=== PATIENT | female | born 1965 | race Caucasian/White ===

== ENCOUNTER 2016-09-10 02:01 | Emergency (ER) | payer MEDICAID, MEDICARE ==
[2016-09-10 02:27] VITALS: O2SAT 98
[2016-09-10] MEDS ORDERED: Sodium Chloride 0.9% 1,000 ML IV ONE (02:37)
[2016-09-10 02:50] LABS: BASO # 0.1 K/uL (0.0-0.2); BASO % 0.4 % (0.0-2.0); EOS # 0.1 K/uL (0.0-0.7); EOS % 0.7 % (0.0-4.0); HEMATOCRIT 39.5 % (34.0-47.0); LYMPH # 1.9 K/uL (1.0-4.3); LYMPH % 14.7 % (20.0-40.0); MEAN CELL VOLUME 86.4 fL (81.0-99.0); MEAN CORPUSCULAR HEMOGLOBIN 27.6 pg (27.0-31.0); MEAN CORPUSCULAR HGB CONC 31.9 g/dL (33.0-37.0); MONO # 0.7 K/uL (0.0-0.8); MONO % 5.7 % (0.0-10.0); RED CELL DISTRIBUTION WIDTH 14.6 % (11.5-14.5); WHITE BLOOD COUNT 12.8 K/uL (4.8-10.8)
[2016-09-10 02:56] LABS: CHLORIDE 99 mmol/L (98-107)
[2016-09-10 02:57] LABS: RBC URINE 14 /hpf (0-3); SODIUM 137 mmol/L (132-148); URINE BACTERIA RARE (<OCC); URINE BILIRUBIN NEGATIVE (NEGATIVE); URINE BLOOD 1+ (NEGATIVE); URINE COLOR Yellow (YELLOW); URINE GLUCOSE (UA) NORMAL (Normal); URINE KETONE NEGATIVE (NEGATIVE); URINE LEUKOCYTE ESTERASE 3+ Leu/uL (Negative); URINE PROTEIN 1+ mg/dL (NEGATIVE); URINE UROBILINOGEN NORMAL mg/dL (0.2-1.0); WBC URINE 443 /hpf (0-5)
[2016-09-10 02:58] LABS: POTASSIUM 5.2 mmol/L (3.6-5.2)
[2016-09-10 02:59] LABS: GFR AFRICAN-AMERICAN > 60
[2016-09-10 03:00] LABS: ALB/GLOB RATIO 1.1 (1.0-2.1); ALKALINE PHOSPHATASE 62 U/L (38-126); ALT/SGPT 20 U/L (9-52); AST/SGOT 37 U/L (14-36); BILIRUBIN,TOTAL 1.3 mg/dL (0.2-1.3); BLOOD UREA NITROGEN 10 mg/dL (7-17); CALCIUM 8.6 mg/dl (8.6-10.4); CARBON DIOXIDE 24 mmol/L (22-30); GLUCOSE,RANDOM 111 mg/dL (65-105); TOTAL PROTEIN 8.3 g/dL (6.3-8.3)
--- NOTE | 2016-09-10 03:05 | C.PDOC ---
History Of Present Illness 51 y/o female presents to ER with c/o of moderate abdominal and flank pain since yesterday now with multiple episodes of vomiting today associated with dysuria, and urinary frequency and subjective fever. Pt states she had some mid chest discomfort when she vomits otherwise no CP, SOB, palpitations. Time Seen by Provider: 09/10/16 02:22 Chief Complaint (Nursing): Chest Pain History Per: Patient History/Exam Limitations: no limitations Current Symptoms Are (Timing): Still Present Severity: Moderate Quality: "Pain" Associated Symptoms: denies: Dyspnea, Diaphoresis, Syncope Recent travel outside of the [place]: No Past Medical History Vital Signs: Last Vital Signs Temp Pulse 87 09/10/16 02:39 Resp 20 09/10/16 02:18 BP 141/96 H 09/10/16 02:18 Pulse Ox 98 09/10/16 03:07 - Medical History PMH: Anxiety, Asthma, Depression, HTN Family History: States: Unknown Family Hx - Social History Hx Tobacco Use: Yes Hx Alcohol Use: No Hx Substance Use: No - Immunization History Hx Tetanus Toxoid Vaccination: No Hx Influenza Vaccination: No Hx Pneumococcal Vaccination: No Review Of Systems Constitutional: Positive for: Fever (subjective) Gastrointestinal: Positive for: Vomiting, Abdominal Pain. Negative for: Diarrhea Genitourinary: Positive for: Dysuria, Frequency. Negative for: Hematuria Physical Exam - Physical Exam Appears: Well, Non-toxic, In Acute Distress (painful distress) Skin: Normal Color Eye(s): bilateral: Normal Inspection, PERRL Neck: Normal Chest: Symmetrical, No Tenderness Cardiovascular: Rhythm Regular, No Murmur Respiratory: Normal Breath Sounds, No Rhonchi, No Wheezing Gastrointestinal/Abdominal: Bowel Sounds, Soft, Tenderness (diffuse ), No Distention, No Guarding, No Rebound Back: CVA Tenderness (b/l) Neurological/Psych: Oriented x3 Gait: Steady ED Course And Treatment - Laboratory Results Result Diagrams: 09/10/16 02:47 09/10/16 02:47 O2 Sat by Pulse Oximetry: 98 Pulse Ox Interpretation: Normal Progress Note: Pt received toradol IV, zofran, pepcid and IVF , reports painimprovement. Labs reviewed and d/w pt. Pt is now tolerating PO and 1st dose of PO abx was given and urine cx sent. Pt is d/c home and understands to return to ER if vomiting, recurring pain, fever or sx worsen. Reevaluation Time: 04:52 Reassessment Condition: Improved Disposition Counseled Patient/Family Regarding: Diagnosis, Need For Followup - Disposition Referrals: Carly Weems MD [Medical Doctor] - Disposition: HOME/ ROUTINE Disposition Time: 04:53 Condition: STABLE Additional Instructions: Increase po fluids Follow up with PMD in 1-2 days Take all meds prescribed RETURN TO ER IF WORSE Prescriptions: Nitrofurantoin Macrocrystals [Macrobid] 1 cap PO BID #14 cap Ibuprofen [Motrin] 600 mg PO Q6H #30 tab Phenazopyridine HCl [Pyridium] 100 mg PO TID #6 tab Ondansetron [Zofran Odt] 4 mg PO TID #7 odt Instructions: Acute Pyelonephritis (ED) Print Language: CAPE VERDEAN - Clinical Impression Clinical Impression: Pyelonephritis
[2016-09-10 05:10] VITALS: BP 119/76; PULSE 84; RESP 16
--- NOTE | 2016-09-20 08:43 | CARD ---
APPROVED REPORT EKG Measurement Heart [id number] <Conclusion> Sinus tachycardia Rightward axis Borderline ECG
== END 2016-09-10 05:10 | disposition home or self-care (01) ==
LOC: C.ER 02:01
DX: N12 Tubulo-interstitial nephritis, not specified as acute or chronic (principal)
CPT/HCPCS: 80053; 81001; 83690; 84703; 85025; 87086; 87181; 96361; 96374; 96375; 99285; J1885; J2405; J7040

== ENCOUNTER 2016-12-13 10:55 | Emergency (ER) | payer MEDICARE ==
[2016-12-13 10:59] VITALS: BMI 28.3
[2016-12-13 11:01] VITALS: RESP 16; TEMP 98.1
--- NOTE | 2016-12-13 11:45 | C.PDOC ---
History Of Present Illness 51 y/o female with asthma, gastritis c/o right side ear pain and right side throat pain x 3 days with dry cough. no fever or chills. no sick contacts, no wheezing, cp or sob. pt taking Tylenol with mild relief. Time Seen by Provider: 12/13/16 11:16 Chief Complaint (Nursing): ENT Problem History Per: Patient History/Exam Limitations: None Onset/Duration Of Symptoms: Days (3) Current Symptoms Are (Timing): Still Present Quality (Ear): Other (full sensation, sharp pain). denies: Discharge Symptoms Have Been: Continuous Severity: Moderate Past Medical History Reviewed: Historical Data, Nursing Documentation, Vital Signs Vital Signs: Last Vital Signs Temp 98.1 F 12/13/16 11:01 Pulse 86 12/13/16 11:01 Resp 16 12/13/16 11:01 BP 118/80 12/13/16 11:01 Pulse Ox 100 12/13/16 11:48 - Medical History PMH: Anxiety, Asthma, Depression, GERD, HTN Family History: States: Unknown Family Hx - Social History Hx Tobacco Use: Yes Hx Alcohol Use: No Hx Substance Use: No - Immunization History Hx Tetanus Toxoid Vaccination: No Hx Influenza Vaccination: No Hx Pneumococcal Vaccination: No Review Of Systems Constitutional: Negative for: Fever, Chills Eyes: Negative for: Pain ENT: Positive for: Ear Pain, Throat Pain. Negative for: Ear Discharge, Nose Discharge, Nose Congestion Cardiovascular: Negative for: Chest Pain, Palpitations Respiratory: Positive for: Cough. Negative for: Shortness of Breath, Sputum, Wheezing Neurological: Negative for: Weakness, Numbness Physical Exam - Physical Exam Appears: Non-toxic, No Acute Distress Skin: Warm, Dry Head: Atraumatic, Normacephalic Eye(s): bilateral: Normal Inspection Ear(s): Left: Normal, Right: Other (tender to tragus, no mastoid tenderness, erythema in canal lateral wall, tm intact and not erythematous) Nose: Normal, No Discharge Oral Mucosa: Moist Tongue: Normal Appearing Lips: Normal Appearing Throat: Erythema (mild, no tonsillar enlargement, no exudate) Neck: Normal ROM Lymphatic: Adenopathy (tender right submandibular node) Chest: Symmetrical, No Tenderness Cardiovascular: Rhythm Regular, No Murmur Respiratory: Normal Breath Sounds, No Rales, No Rhonchi, No Wheezing Neurological/Psych: Oriented x3, Normal Speech, Normal Cognition ED Course And Treatment O2 Sat by Pulse Oximetry: 100 Medical Decision Making Medical Decision Making: ear and throat pain: tx for otitis externa, rapid strep. tylenol, re-eval. Disposition Counseled Patient/Family Regarding: Studies Performed, Diagnosis, Need For Followup, Rx Given, Smoking Cessation - Disposition Referrals: Pro Beyer MD [Staff Provider] - Disposition: HOME/ ROUTINE Disposition Time: 12:20 Condition: STABLE Additional Instructions: [place] Acetaminophen (Tylenol) segn lo prescrito; Use gotas para los odos beckie se prescribbed. Vicky grgaras con agua salada caliente varias veces al da. Consulte a alaniz mdico de atencin primaria o especialista en ORL en unos bailey. Regrese a ER para cualquier problema que empeora. Prescriptions: Acetaminophen 2 tab PO Q6 #50 tablet Neomycin/Polymyxin/Hydrocortis [Cortisporin Otic Susp] 4 drop AD QID #1 bottle Instructions: Otitis Externa (ED), Pharyngitis (ED) Print Language: UZBEK - Clinical Impression Clinical Impression: Otitis externa, Pharyngitis
[2016-12-13 12:34] VITALS: BP 121/78; PULSE 78
[2016-12-13 22:58] VITALS: O2SAT 100
== END 2016-12-13 12:33 | disposition home or self-care (01) ==
LOC: C.ER 10:55
DX: H60.91 Unspecified otitis externa, right ear (principal); J02.9 Acute pharyngitis, unspecified

== ENCOUNTER 2017-04-30 02:56 | Emergency (ER) | payer MEDICARE ==
[2017-04-30 02:57] VITALS: BMI 28.3
[2017-04-30] MEDS ORDERED: Amoxicillin-Clav 875-125 mg Tab PO STA (04:00)
--- NOTE | 2017-04-30 04:07 | C.PDOC ---
History Of Present Illness 52 year old female with no significant PMHx presents to the ED with complaints of upper lip swelling and pain since yesterday. Patient notes taking Benadryl with no relief. Patient denies fever trauma, dental pain or known allergens. Time Seen by Provider: 04/30/17 03:40 Chief Complaint (Nursing): Medical Clearance History Per: Patient History/Exam Limitations: no limitations Onset/Duration Of Symptoms: Days (1 day ) Current Symptoms Are (Timing): Still Present Recent travel outside of the [place]: No Past Medical History Reviewed: Historical Data, Nursing Documentation, Vital Signs Vital Signs: Last Vital Signs Temp 98.5 F 04/30/17 04:42 Pulse 81 04/30/17 04:42 Resp 18 04/30/17 04:42 BP 135/90 04/30/17 04:42 Pulse Ox 98 04/30/17 05:45 - Medical History PMH: Anxiety, Asthma, Depression, GERD, HTN Family History: States: Unknown Family Hx - Social History Hx Tobacco Use: Yes Hx Alcohol Use: No Hx Substance Use: No - Immunization History Hx Tetanus Toxoid Vaccination: No Hx Influenza Vaccination: No Hx Pneumococcal Vaccination: No Review Of Systems Constitutional: Negative for: Fever, Chills Skin: Positive for: Other (upper lip swelling ) Physical Exam - Physical Exam Appears: Non-toxic, No Acute Distress Skin: Warm, Dry, No Rash Head: Atraumatic, Normacephalic, No Tenderness, Other (small tender indurated abscess below the nose and above mid upper lip with no fluctuance. ) Eye(s): bilateral: Normal Inspection, PERRL, EOMI Ear(s): Bilateral: Normal Nose: Normal, No Discharge Oral Mucosa: Moist Tongue: Normal Appearing, No Swelling Lips: Swelling (upper lip swelling ), Other (lower lip normal) Teeth: No Tender To Palpation, Other (no dental masses palpable to area upper gum) Gingiva: Normal Appearing, No Erythema, No Swelling, Other (floor of mouth is normal ) Throat: Normal, No Erythema, No Exudate Neck: Supple Chest: Symmetrical, No Deformity Cardiovascular: Rhythm Regular, No Murmur Respiratory: Normal Breath Sounds, No Rales, No Rhonchi, No Wheezing Neurological/Psych: Oriented x3 ED Course And Treatment O2 Sat by Pulse Oximetry: 98 (RA) Pulse Ox Interpretation: Normal Progress Note: Patient was given Augmentin and Prednisone. Lip swelling most likely due to infected mass at the upper lip, no facial cellulitis, no dental absess. Allergic reacrtion less likely. May continue benadryl but pt understsands to apply warm compress and take PO augmentin, wound check with PMD and return precautions d/w pt who acknowledged understanding Disposition Counseled Patient/Family Regarding: Diagnosis, Need For Followup, Rx Given - Disposition Referrals: [facility] [Outside] Disposition: HOME/ ROUTINE Disposition Time: 04:03 Condition: STABLE Additional Instructions: Take meds as directed Wound check in 2 days with your doctor or in clinic Return to ER if worse Prescriptions: Amoxicillin/Clavulanate [Augmentin 875 MG-125 MG] 1 tab PO BID #14 tab predniSONE [Prednisone] 40 mg PO DAILY #6 tab Instructions: Abscess (ED) Forms: [place] (Danish) Print Language: SERBIAN - Clinical Impression Clinical Impression: Lip abscess - 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 - Scribe Statement The provider has reviewed the documentation as recorded by the Scribloulou Arredondo All medical record entries made by the Dominick were at my direction and personally dictated by me. I have reviewed the chart and agree that the record accurately reflects my personal performance of the history, physical exam, medical decision making, and the department course for this patient. I have also personally directed, reviewed, and agree with the discharge instructions and disposition.
[2017-04-30] MEDS ORDERED: Amoxicillin-Clav 875-125 mg Tab PO ONE (04:13)
[2017-04-30 04:51] VITALS: BP 135/90; PULSE 81; RESP 18; TEMP 98.5
[2017-04-30 05:43] VITALS: O2SAT 98
== END 2017-04-30 04:41 | disposition home or self-care (01) ==
LOC: C.ER 02:56
DX: K13.0 Diseases of lips (principal)

== ENCOUNTER 2018-01-04 22:20 | Emergency (ER) | payer MEDICARE, OTHER ==
[2018-01-04 22:20] VITALS: BMI 28.3
[2018-01-04 22:36] VITALS: BP 141/82; PULSE 88; RESP 20; TEMP 98.2; O2SAT 100
[2018-01-04] MEDS ORDERED: Oxycodone/Acetaminophen 5/325 mg Tab PO STA (22:42)
--- NOTE | 2018-01-04 22:45 | C.PDOC ---
History Of Present Illness 52 year old female presents to the ER with a complaint of right lower dental pain that began tonight. Denies trauma, fever, tooth discharge, or recent dental procedures. Time Seen by Provider: 01/04/18 22:26 Chief Complaint (Nursing): Dental Pain History Per: Patient History/Exam Limitations: no limitations Onset/Duration Of Symptoms: Hrs Current Symptoms Are (Timing): Still Present Recent travel outside of the [place]: No Past Medical History Reviewed: Historical Data, Nursing Documentation, Vital Signs Vital Signs: Last Vital Signs Temp 98.2 F 01/04/18 22:27 Pulse 88 01/04/18 22:27 Resp 20 01/04/18 22:27 BP 141/82 01/04/18 22:27 Pulse Ox 100 01/04/18 22:48 - Medical History PMH: Anxiety, Asthma, Depression, GERD, HTN Family History: States: Unknown Family Hx - Social History Hx Tobacco Use: Yes Hx Alcohol Use: No Hx Substance Use: No - Immunization History Hx Tetanus Toxoid Vaccination: No Hx Influenza Vaccination: No Hx Pneumococcal Vaccination: No Review Of Systems Constitutional: Negative for: Fever ENT: Positive for: Mouth Pain. Negative for: Mouth Swelling, Throat Pain, Other (tooth pain) Physical Exam - Physical Exam Appears: Non-toxic Skin: Normal Color, Warm, Dry Head: Atraumatic, Normacephalic Eye(s): bilateral: Normal Inspection Nose: Normal Oral Mucosa: Moist, No Trismus Tongue: Normal Appearing Lips: Normal Appearing Teeth: Other (Poor dentition) Gingiva: Normal Appearing, No Swelling Throat: Normal, No Erythema Neck: Normal, No Midline Cervical Tenderness, No Paracervical Tenderness, Supple Lymphatic: No Adenopathy Neurological/Psych: Oriented x3, Normal Speech ED Course And Treatment O2 Sat by Pulse Oximetry: 100 Medical Decision Making Medical Decision Making: Percocet and amoxicillin administered. Patient reports improvement of pain, will discharge home with Rx and instructions to follow up with dentist for further evaluation. Disposition - Disposition Referrals: Arjun Mal[facility] [Outside] Disposition: HOME/ ROUTINE Disposition Time: 22:45 Condition: GOOD Additional Instructions: Follow up with the medical doctor within 1-2 days, Return if worsened. 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 - Scribe Statement The provider has reviewed the documentation as recorded by the Scribe Marin Dewitt All medical record entries made by the Scribe were at my direction and personally dictated by me. I have reviewed the chart and agree that the record accurately reflects my personal performance of the history, physical exam, medical decision making, and the department course for this patient. I have also personally directed, reviewed, and agree with the discharge instructions and disposition.
[2018-01-04] MEDS ORDERED: Oxycodone/Acetaminophen 5/325 mg Tab ONE (22:49)
== END 2018-01-04 22:58 | disposition home or self-care (01) ==
LOC: C.ER 22:20
DX: K02.9 Dental caries, unspecified (principal)

== ENCOUNTER 2018-04-18 22:07 | Emergency (ER) | payer MEDICARE, OTHER ==
[2018-04-18 22:07] VITALS: BMI 30.2
[2018-04-18] MEDS ORDERED: Albuterol-Ipratrop 3 mg / 0.5 (3 ml) UD ONE (22:18)
--- NOTE | 2018-04-18 22:23 | C.PDOC ---
History Of Present Illness 53 year old female with PMHx of asthma and gastritis presents to the ED c/o SOB and left side chest wall pain. Patient states pain increases with deep breathing. Patient also states she was coughing at home and c/o epigastric abdominal pain. Patient denies fever, chills, nausea, vomit, diarrhea, palpitations, rash, weakness, numbness. Chief Complaint (Nursing): Chest Pain History Per: Patient History/Exam Limitations: no limitations Onset/Duration Of Symptoms: Days Current Symptoms Are (Timing): Still Present Quality: "Pain" Exacerbating Factors: Deep Breathing Recent travel outside of the [place]: No Additional History Per: Patient Past Medical History Reviewed: Historical Data, Nursing Documentation, Vital Signs - Medical History PMH: Anxiety, Asthma, Depression, Gastritis, GERD Denies: Chronic Kidney Disease Surgical History: Appendectomy, Family History: States: Unknown Family Hx - Social History Hx Tobacco Use: Yes Hx Alcohol Use: No Hx Substance Use: No - Immunization History Hx Tetanus Toxoid Vaccination: No Hx Influenza Vaccination: No Hx Pneumococcal Vaccination: No Review Of Systems Constitutional: Negative for: Fever, Chills Eyes: Negative for: Vision Change ENT: Negative for: Nose Congestion Cardiovascular: Positive for: Chest Pain. Negative for: Palpitations Respiratory: Positive for: Cough, Shortness of Breath. Negative for: Sputum, Wheezing Gastrointestinal: Negative for: Nausea, Vomiting, Abdominal Pain Skin: Negative for: Rash Neurological: Negative for: Weakness, Numbness, Headache Physical Exam - Physical Exam Appears: Non-toxic, In Acute Distress, Other (moderate dyspnic) Skin: Normal Color, Warm, Dry Head: Atraumatic, Normacephalic Eye(s): bilateral: Normal Inspection Oral Mucosa: Moist Neck: Normal ROM, Supple Chest: Symmetrical Cardiovascular: Rhythm Regular Respiratory: No Rales, Rhonchi, Wheezing (bilateral) Gastrointestinal/Abdominal: Soft, Tenderness (epigastric), No Guarding, No Rebound Extremity: Normal ROM, No Tenderness, No Swelling Neurological/Psych: Oriented x3, Normal Speech, Normal Cognition Gait: Steady ED Course And Treatment - Laboratory Results Result Diagrams: 04/18/18 22:37 04/18/18 22:37 ECG: Interpreted By Me, Viewed By Me ECG Rhythm: Sinus Rhythm ECG Interpretation: Normal, No Acute Changes Interpretation Of ECG: NSR, normal tracings. Rate From EC O2 Sat by Pulse Oximetry: 99 (ON RA) Pulse Ox Interpretation: Normal - CT Scan/US CTA chest Other Rad Studies (CT/US): Read By Radiologist, Radiology Report Reviewed CT/US Interpretation: CTA OF THE CHEST WITH IV CONTRAST. CLINICAL HISTORY: Left-sided chest pain and elevated d-dimer. TECHNIQUE: Axial and reformatted sagittal and coronal images of the chest obtained after bolus IV contrast administration. FINDINGS: Minimal bilateral basilar subsegmental atelectatic pulmonary changes. Normal enhancement of the main pulmonary artery and right and left pulmonary arteries. Normal enhancement of the bilateral peripheral pulmonary arteries. There is no demonstrated pulmonary embolism. Normal thoracic aorta and visualized great vessels. There is no demonstrated aortic dissection. Mildly enlarged heart and normal pericardium. Normal mediastinum. Normal hilar regions. Normal visualized trachea and bronchi. The lungs are well expanded. Normal pulmonary parenchyma. Normal pleura. Normal chest wall structures. Normal osseous structures. Normal visualized upper abdomen. IMPRESSION: No demonstrated pulmonary embolism or arterial dissection. Subsegmental atelectatic airspace disease of the lung bases. . Electronically signed on Apr 19, 2018 1:47:25 AM EST by: Christiano Arora M.D., Certified by OC, MSK, Neuroradiology Medical Decision Making Medical Decision Making: Plan: * CT chest * EKG * Labs * CXR * Carafate 1 gm PO * Duoneb X 2 * Pepcid 20 mg IVP * Solumedrol 125 mg IVP * IV fluids * Toradol 30 mg IVP Disposition - Disposition Referrals: Non [facility] Provider, [Primary Care Provider] - Disposition: HOME/ ROUTINE Disposition Time: 02:06 Condition: STABLE Prescriptions: Albuterol/Ipratropium [Duoneb 3 MG/3 Ml-0.5 MG/3 Ml 3 Ml] 3 ml IH Q6 #20 neb Methylprednisolone [Medrol Dose Pack (21 tabs)] 4 mg PO DAILY #21 mg traMADol/Acetaminophen [Ultracet 325 MG-37.5 MG] 1 tab PO Q4 #20 tab Instructions: Asthma, Adult (DC), Costochondritis, Chest Pain That Is Not Caused by the Heart (DC) Forms: [employer] (Occitan), Gen Discharge Inst Estonian Print Language: UGANDAN - POA Present On Arrival: None - Clinical Impression Clinical Impression: Chest pain, Pleuritic pain, Asthma - Scribe Statement The provider has reviewed the documentation as recorded by the Scribe Nasim Edward All medical record entries made by the Scribe were at my direction and personally dictated by me. I have reviewed the chart and agree that the record accurately reflects my personal performance of the history, physical exam, medical decision making, and the department course for this patient. I have also personally directed, reviewed, and agree with the discharge instructions and disposition.
[2018-04-18] MEDS ORDERED: Sodium Chloride 0.9% 1,000 ML IV ONE (22:24)
[2018-04-18] MEDS ORDERED: Albuterol-Ipratrop 3 mg / 0.5 (3 ml) UD INH STA ×2 (22:25→22:27)
[2018-04-18] MEDS ORDERED: Sucralfate 1 gm/10 ml Oral Susp UD PO STA (22:26)
[2018-04-18 22:44] LABS: BASO # 0.1 K/uL (0.0-0.2); BASO % 0.7 % (0.0-2.0); EOS # 0.5 K/uL (0.0-0.7); EOS % 6.1 % (0.0-4.0); HEMOGLOBIN 11.5 g/dL (11.0-16.0); LYMPH # 3.5 K/uL (1.0-4.3); LYMPH % 42.7 % (20.0-40.0); MEAN CELL VOLUME 86.8 fL (81.0-99.0); MEAN CORPUSCULAR HEMOGLOBIN 28.4 pg (27.0-31.0); MEAN CORPUSCULAR HGB CONC 32.7 g/dL (33.0-37.0); MEAN PLATELET VOLUME 9.1 fL (7.2-11.7); MONO # 0.4 K/uL (0.0-0.8); MONO % 4.5 % (0.0-10.0); NEUT # 3.8 K/uL (1.8-7.0); RBC 4.06 Mil/uL (3.80-5.20); RED CELL DISTRIBUTION WIDTH 14.5 % (11.5-14.5); WHITE BLOOD COUNT 8.3 K/uL (4.8-10.8)
[2018-04-18 22:52] LABS: PROTHROMBIN TIME 10.9 SECONDS (9.7-12.2)
[2018-04-18 23:00] LABS: ALB/GLOB RATIO 1.2 (1.0-2.1); ALBUMIN 4.3 g/dL (3.5-5.0); ALT/SGPT 50 U/L (9-52); AST/SGOT 43 U/L (14-36); BLOOD UREA NITROGEN 15 mg/dL (7-17); CALCIUM 8.9 mg/dl (8.6-10.4); GFR NON-AFRICAN AMERICAN > 60; LIPASE 93 U/L (23-300)
[2018-04-18] MEDS ORDERED: Iodixanol 320 MG/ML 100 ML BOTTLE IV ONE (23:53)
[2018-04-19] MEDS ORDERED: Iodixanol 320 MG/ML 100 ML BOTTLE IV ONE (00:30)
[2018-04-19 02:23] VITALS: BP 124/72; PULSE 100; RESP 18; TEMP 97.7; O2SAT 100
--- NOTE | 2018-04-19 09:01 | CT ---
Date of service: 04/19/2018 PROCEDURE: CT Chest with contrast (Pulmonary Angiogram) HISTORY: left sided chest pain/ elevated D-dimer COMPARISON: None available. TECHNIQUE: Axial computed tomography images were obtained of the chest in the pulmonary arterial phase of enhancement. Coronal and sagittal reformatted images were created and reviewed. Radiation dose: Total exam DLP = 360.57 mGy-cm. This CT exam was performed using one or more of the following dose reduction techniques: Automated exposure control, adjustment of the mA and/or kV according to patient size, and/or use of iterative reconstruction technique. FINDINGS: PULMONARY ARTERIES: Unremarkable. No pulmonary embolism. AORTA: No acute findings. No thoracic aortic aneurysm. No aortic atherosclerotic calcification or mural plaque present. LUNGS: Mild atelectasis seen within the medial inferior aspect of the right middle lobe. Additional mild atelectasis seen within the lingula. PLEURAL SPACES: Unremarkable. No effusion or pneumothorax. HEART: Mildly enlarged heart. LYMPH NODES: No lymphadenopathy. BONES, CHEST WALL: Unrem the arkable. No fracture or destructive lesion OTHER FINDINGS: Prominent liver. IMPRESSION: No acute pulmonary embolism. Additional findings as above. A preliminary report was generated at 1:47 a.m. on 04/19/[address] Christiano Arora from [facility].
--- NOTE | 2018-04-19 09:43 | RAD ---
Chest x-ray single frontal view HISTORY: Shortness of breath. COMPARISON: None available. FINDINGS: Mild venous congestion. Right hilar prominence Heart size within normal limits. Visualized aorta is preserved. Right paratracheal prominence likely represents prominent vasculature. IMPRESSION: Mild venous congestion. Right hilar prominence
--- NOTE | 2018-04-22 20:42 | CARD ---
APPROVED REPORT Date of service: 04/18/2018 EKG Measurement Heart [id number] <Conclusion> Normal sinus rhythm Normal ECG
== END 2018-04-19 02:23 | disposition home or self-care (01) ==
LOC: C.ER 22:07 → SUPCPDRO 22:07 → C.ER 04-19 02:23
DX: J45.909 Unspecified asthma, uncomplicated (principal); R07.89 Other chest pain; K21.9 Gastro-esophageal reflux disease without esophagitis; Z87.891 Personal history of nicotine dependence
CPT/HCPCS: 71045; 71275; 80053; 83690; 84484; 85025; 85378; 85610; 85730; 93005; 94640; 96374; 96375; 99285; J1885; J2930; J7030; Q9967